=== PATIENT | female | born 1960 | race Caucasian/White ===

== ENCOUNTER 2024-02-15 04:16 | Day surgery (SDC) | payer OTHER ==
[2024-02-14 10:16] VITALS: BMI 25.4
[2024-02-15] MEDS ORDERED: PROPOFOL 40 ML ONE (14:24)
[2024-02-15] MEDS ORDERED: MIDAZOLAM HCL 2 MG/2 ML SINGLE DOSE VIAL ONE (14:24)
[2024-02-15] MEDS ORDERED: LIDOCAINE HCL/PF 2% SDV 5ML VIAL ONE (14:26)
[2024-02-15] MEDS: ceFAZolin SODIUM 1 GM VIAL IVPB ONE (14:37)
[2024-02-15] MEDS ORDERED: ceFAZolin SODIUM 1 GM VIAL ONE (14:40)
[2024-02-15] MEDS ORDERED: DEXAMETHASONE SOD PHOSPHATE 4 MG/1 ML VIAL ONE (14:44)
[2024-02-15] MEDS ORDERED: ONDANSETRON 4 MG/2 ML VIAL ONE (14:44)
[2024-02-15] MEDS: IOHEXOL 180 MG/1 ML ML IJ ONE (15:00)
[2024-02-15] MEDS ORDERED: ONDANSETRON 4 MG/2 ML VIAL IVPUSH PRN (15:10)
[2024-02-15] MEDS ORDERED: LACTATED RINGERS SOLUTION 1,000 ML IV SCH (15:15)
[2024-02-15 15:45] VITALS: RESP 16
[2024-02-15] MEDS ORDERED: ACETAMINOPHEN INJECTION 100 ML IVPB ONE (15:50)
[2024-02-15] MEDS: ACETAMINOPHEN 1000 MG/100 ML BAG IVPB ONE (16:24)
[2024-02-15 17:34] VITALS: BP 131/79; PULSE 75; TEMP 97.8
== END 2024-02-15 17:46 | disposition home or self-care (01) ==
LOC: JASU-SURG 04:16
PROVIDERS: ATTEND Urology
PROC: 0TP98DZ Removal of Intraluminal Device from Ureter, Via Natural or Artificial Opening Endoscopic (ICD-10-PCS; principal; 2024-02-15 13:30)
PROC: BT1FYZZ Fluoroscopy of Left Kidney, Ureter and Bladder using Other Contrast (ICD-10-PCS; 2024-02-15 13:30)
DX: N20.1 Calculus of ureter (principal)
CPT/HCPCS: 76000-TC-FY; 94760; C1758; J0131